=== PATIENT | female | born 1955 | race Caucasian/White ===

== ENCOUNTER 2018-02-16 14:39 | Outpatient (REF) | payer MEDICAID, SELFPAY | END 2018-02-16 14:59 | LOC: NCHCN 14:39 | PROVIDERS: PCP Internal Medicine; Visit Provider Registered Nurse | DX: R82.90 Unspecified abnormal findings in urine (principal) | CPT/HCPCS: 87077; 87086; 87186 ==

== ENCOUNTER 2021-10-02 13:26 | Outpatient (REF) | payer MEDICARE, SELFPAY ==
[2021-10-04 11:51] LABS: COVID-19 RT-PCR UVMMC Result Negative (Negative)
== END 2021-10-02 13:27 | disposition home or self-care (01) ==
LOC: NCHCN 13:26
PROVIDERS: PCP Internal Medicine; Visit Provider Internal Medicine
DX: Z20.822 Contact with and (suspected) exposure to COVID-19 (principal); J06.9 Acute upper respiratory infection, unspecified
CPT/HCPCS: U0003

== ENCOUNTER 2022-04-24 17:31 | Outpatient (REF) | payer MEDICARE, SELFPAY | END 2022-04-24 17:32 | disposition home or self-care (01) | LOC: NCHCN 17:31 | PROVIDERS: PCP Internal Medicine; Visit Provider Internal Medicine | DX: N39.0 Urinary tract infection, site not specified (principal) | CPT/HCPCS: 87086 ==

== ENCOUNTER 2022-12-09 22:35 | Outpatient (REF) | payer MEDICARE, SELFPAY ==
[2022-12-09 22:44] LABS: Abs Immature Grans 0.02 10^3/uL (0.0-0.06); Absolute Basophil Count 0.08 10^3/uL (0.0-0.2); Absolute Eosinophil Count 0.24 10^3/uL (0.0-0.7); Absolute Lymphocyte Count 1.42 10^3/uL (1.2-3.4); Absolute Neutrophil Count 6.98 10^3/uL (1.2-6.7); Basophils % 0.8; Eosinophils % 2.4; HGB 13.4 g/dL (11.2-15.7); Immature Grans % 0.2; Lymphocytes % 14.4; MCH 29.3 pg (27.0-33.0); MCHC 31.9 % (32.0-36.0); MCV 92 fL (80-95); Monocytes % 11.2; Platelet Count 289 10^3/uL (130-400); RBC 4.57 10^6/uL (3.93-5.22); RDW 12.8 % (11.7-14.6); RDW-SD 43.3 fL; WBC 9.84 10^3/uL (4.4-10.8)
[2022-12-09 23:06] LABS: ALT 21 U/L (14-59); AST 21 U/L (15-37); Albumin 3.7 g/dL (3.4-5.0); Alkaline Phosphatase 78 U/L (46-116); Anion Gap 10.7 mmol/L (3-11); BUN 11 mg/dL (7-18); Bilirubin, Total 0.4 mg/dL (0.2-1.0); CO2 26.3 mmol/L (21.0-32.0); CREATININE 0.8 mg/dL (0.55-1.02); Calcium 9.8 mg/dL (8.5-10.1); Chloride 102 mmol/L (98-107); Estimated GFR 80.21 (mL/min/1.73m2); Glucose 95 mg/dL (74-106); Sodium 139 mmol/L (136-145); Total Protein 7.6 g/dL (6.4-8.2)
[2022-12-09 23:13] LABS: RBC Morphology Normal
[2022-12-09 23:14] LABS: Diff Comment PLT Morph Reviewed
== END 2022-12-09 22:36 | disposition home or self-care (01) ==
LOC: NCHCN 22:35
PROVIDERS: PCP Internal Medicine; Visit Provider Internal Medicine
DX: J18.9 Pneumonia, unspecified organism (principal)
CPT/HCPCS: 80053; 85025